=== PATIENT | female | born 1965 | race Two or more races ===

== ENCOUNTER → 2021-10-31 | Emergency (ER) | payer MEDICAID, OTHER ==
[~2021-10-31] VITALS: Ht 170.2 cm; Wt 77.1 kg
[~2021-10-31] MED LIST: diphenhdrAMINE HCL 50 MG/1 ML VL IV ONE; diphenhdrAMINE HCL 50 MG/1 ML VL ONE; methylPREDNISolone SOD SUCC 125 MG/2 ML VL IV ONE; methylPREDNISolone SOD SUCC 125 MG/2 ML VL ONE
[2021-11-01 02:00] VITALS: BP 98/62
== END | disposition home or self-care (01) ==
LOC: EDBD 22:22 → ER 22:24
DX: T78.40XA Allergy, unspecified, initial encounter (principal); E11.9 Type 2 diabetes mellitus without complications; X58.XXXA Exposure to other specified factors, initial encounter
CPT/HCPCS: 96374; 96375; 99284; J1200; J2930